=== PATIENT | male | born 1970 ===

== ENCOUNTER 2017-02-05 20:28 | Emergency (ER) | payer MEDICAID ==
[~2017-02-05] VITALS: Ht 185.4 cm; Wt 115.7 kg
--- NOTE | 2017-02-05 21:07 | Emergency Room Report ---
History of Present Illness General Chief Complaint: Upper Extremity Injury Source: Patient Present Illness HPI Is a 47-year-old male who is right-hand dominant. He has a history of alcohol abuse. He said he fell in her his right arm. No head injury. Not on anticoagulations. No pain. Full range of motion. There is some swelling however. No other complaint. Allergies: Coded Allergies: No Known Allergies (Unverified , 02/05/17) Patient History Past Medical History: see triage record, old chart reviewed Past Surgical History: other Pertinent Family History: none Social History: Reports: alcohol use Immunizations: other Reviewed Nursing Documentation: PMH: Agreed, PSxH: Agreed Review of Systems Eye: Denies: eye pain, blurred vision ENT: Denies: ear pain, nose congestion, throat swelling Respiratory: Denies: cough, shortness of breath Cardiovascular: Denies: chest pain, palpitations Gastrointestinal: Denies: abdominal pain, diarrhea, nausea, vomiting Musculoskeletal: Reports: muscle pain, Denies: back pain, joint pain Skin: Denies: rash Neurological: Denies: headache, numbness Endocrine: Denies: increased thirst, increased urine Hematologic/Lymphatic: Denies: easy bruising All Other Systems: negative except mentioned in HPI Physical Exam Vital Signs Date Time Temp Pulse Resp B/P (MAP) Pulse Ox O2 Delivery O2 Flow Rate FiO2 02/05/17 20:49 98.1 116 20 141/99 94 Room Air vitals with tachycardia Sp02 EP Interpretation: reviewed, normal General Appearance: well appearing, no apparent distress, alert Head: normocephalic, atraumatic Eyes: bilateral eye PERRL, bilateral eye EOMI ENT: hearing grossly normal, normal pharynx Neck: full range of motion, supple, no meningismus Respiratory: chest non-tender, lungs clear, normal breath sounds Cardiovascular #1: regular rate, rhythm, no murmur Gastrointestinal: normal bowel sounds, non tender, no mass, no organomegaly, no bruit, non-distended Musculoskeletal: back normal, gait/station normal, normal range of motion, swelling - rt forearm. no pain. FROM Psychiatric: mood/affect normal Skin: warm/dry Medical Decision Making Diagnostic Impression: Primary Impression: Injury of right upper extremity Qualified Codes: S49.91XA - Unspecified injury of right shoulder and upper arm , initial encounter Additional Impression: Alcohol intoxication Qualified Codes: F10.920 - Alcohol use, unspecified with intoxication, uncomplicated ER Course Patient with injury to his right upper extremity around his forearm. He has no pain. There is some edema. Patient refused any diagnostic study. He got up and left without signing his paperwork. Last Vital Signs Date Time Temp Pulse Resp B/P (MAP) Pulse Ox O2 Delivery O2 Flow Rate FiO2 02/05/17 20:49 98.1 116 20 141/99 94 Room Air Status: unchanged Disposition: HOME, SELF-CARE Condition: Stable Patient Instructions: CONTUSION, Upper Extremity Additional Instructions: As a from alcohol. Followup your Dr. in 7 days. Return any concern. BRADLEY WOODS M.D. Feb 05, 2017 21:07
[2017-02-05 21:08] VITALS: BP 141/99
== END 2017-02-05 21:15 | disposition home or self-care (01) ==
LOC: EMR 21:15
DX: S49.91XA Unspecified injury of right shoulder and upper arm, initial encounter (principal); W19.XXXA Unspecified fall, initial encounter; Y93.9 Activity, unspecified; Y99.9 Unspecified external cause status; F10.929 Alcohol use, unspecified with intoxication, unspecified; M79.1 Myalgia
CPT/HCPCS: 99282